=== PATIENT | male | born 1960 | race Hispanic/Latino ===

== ENCOUNTER → 2020-10-26 | Day surgery (SDC) | payer OTHER ==
[~2020-10-26] MED LIST: LOTREL 5-10 MG1 EACH PO; OR PHACO EYE KIT ONE; PREOP PHACO EYE KIT ONE; STELARA90 MG/1 ML INJ
[2020-10-26 16:55] VITALS: BP 133/87
== END | disposition home or self-care (01) ==
LOC: OR 13:17
PROVIDERS: ATTEND Ophthalmology
DX: H25.811 Combined forms of age-related cataract, right eye (principal); Z01.812 Encounter for preprocedural laboratory examination; Z20.822 Contact with and (suspected) exposure to COVID-19; I10 Essential (primary) hypertension; L40.9 Psoriasis, unspecified; Z87.891 Personal history of nicotine dependence; Z87.440 Personal history of urinary (tract) infections
CPT/HCPCS: 66982; U0002; V2632

== ENCOUNTER → 2021-01-11 | Day surgery (SDC) | payer OTHER ==
[2021-01-11 11:15] VITALS: BP 118/74
== END | disposition home or self-care (01) ==
LOC: OR 08:42
PROVIDERS: ATTEND Ophthalmology
DX: H25.12 Age-related nuclear cataract, left eye (principal); I10 Essential (primary) hypertension; Z79.899 Other long term (current) drug therapy; Z01.812 Encounter for preprocedural laboratory examination; Z20.822 Contact with and (suspected) exposure to COVID-19
CPT/HCPCS: 66984; U0002; V2632